=== PATIENT | female | born 1980 | race Caucasian/White ===

== ENCOUNTER 2018-10-15 00:19 | Emergency (ER) | payer SELFPAY ==
[~2018-10-15] VITALS: Ht 152.4 cm; Wt 57.8 kg
[2018-10-15 00:22] VITALS: Ht 152.4 cm; Wt 57.8 kg
== END 2018-10-15 03:30 | disposition left against medical advice (07) ==
LOC: FTE 00:19
DX: Z53.21 Procedure and treatment not carried out due to patient leaving prior to being seen by health care provider (principal)